=== PATIENT | male | born 1975 | race Caucasian/White ===

== ENCOUNTER 2018-05-14 17:51 | Emergency (ER) | payer OTHER ==
[2018-05-14 18:13] VITALS: TEMP 98.5; BMI 27.8
--- NOTE | 2018-05-14 18:13 | PDOC ---
Rapid Medical Evaluation Time Seen by Provider: 05/14/18 18:10 Medical Evaluation: Allergies Allergy/AdvReac Type Severity Reaction Status Date / Time No Known Allergies Allergy Verified 09/25/12 15:57 05/14/18 18:10 The patient has a chief complaint of pain to left abdomen x 2 weeks. States pain is present after eating. Denies nausea, vomiting, diarrhea, constipation and dysuria. Physical exam findings NAD unlabored breathing + bowel sounds, -abdominal tendernes no cva tenderness The following was ordered urinalysis, labs The patient will proceed to the ED Discharge Disposition - Diagnosis Abdominal pain - Referrals Referrals: Kt Funes MD [Primary Care Provider] - - Patient Instructions - Post Discharge Activity
[2018-05-14 18:33] LABS: BASO % 0.6 % (0-2.0); EOS % 2.3 % (0-4.5); HEMATOCRIT 47.6 % (35.4-49); LYMPH % 17.7 % (8-40); MCHC 33.6 g/dl (32.0-35.9); MEAN CELL VOLUME 92.4 fl (80-96); MEAN PLT VOLUME 8.5 fl (7.5-11.1); NEUT % 71.4 % (42.8-82.8); PLATELET COUNT 230 K/MM3 (134-434); RBC 5.15 M/mm3 (4.00-5.60); RDW 13.8 % (11.9-15.9); WHITE BLOOD COUNT 11.4 K/mm3 (4.0-10.0)
[2018-05-14 19:00] LABS: ALBUMIN 3.6 g/dl (3.4-5.0); ALK PHOS 69 U/L (45-117); ANION GAP 2 MMOL/L (8-16); BILIRUBIN,TOTAL 0.4 mg/dL (0.2-1); BLOOD UREA NITROGEN 19 mg/dL (7-18); CHLORIDE 110 mmol/L (98-107); CO2 30 mmol/L (21-32); CREATININE 0.9 mg/dL (0.55-1.3); GLUCOSE,RANDOM 95 mg/dL (74-106); POTASSIUM 4.7 mmol/L (3.5-5.1); SGOT/AST 18 U/L (15-37); SGPT/ALT 40 U/L (13-61); SODIUM 142 mmol/L (136-145); TOT PROT 7.6 g/dl (6.4-8.2)
[2018-05-14 19:04] LABS: URINE APPEARANCE CLEAR; URINE BILIRUBIN NEGATIVE (<2.0 mg/dL); URINE COLOR YELLOW; URINE GLUCOSE (UA) NEGATIVE (NEGATIVE); URINE KETONE NEGATIVE (NEGATIVE); URINE LEUK ESTERASE NEGATIVE (NEGATIVE); URINE NITRITE NEGATIVE (NEGATIVE); URINE PROTEIN NEGATIVE (NEGATIVE); URINE UROBILINOGEN NEGATIVE mg/dL (0.2-1.0)
--- NOTE | 2018-05-14 19:31 | PDOC ---
History of Present Illness - General Chief Complaint: Pain Stated Complaint: KIDNEYS PAIN Time Seen by Provider: 05/14/18 18:10 History Source: Patient - History of Present Illness Initial Comments: 05/14/18 20:45 43-year-old male complaining of left lower quadrant and left upper quadrant pain for the last 3 weeks on and off. Patient was seen by his primary care physician one month ago and was told his blood pressure is high and was given blood pressure medication. Patient reports that he did not start BP meds. Denies chest pain, dizziness, nausea, vomiting, diarrhea, fevers/chills, urinary symptoms. Denies flank pain. Past History - Past Medical History Allergies/Adverse Reactions: Allergies Allergy/AdvReac Type Severity Reaction Status Date / Time No Known Allergies Allergy Verified 05/14/18 18:58 Home Medications: Ambulatory Orders Mag Hydrox/Al Hydrox/Simeth [Mylanta Suspension -] 30 ml PO Q6H #1 bottle Ranitidine HCl [Zantac] 150 mg PO BID #30 tablet 05/14/18 COPD: No - Suicide/Smoking/Psychosocial Hx Smoking Status: Yes Smoking History: Current every day smoker Number of Cigarettes Smoked Daily: 10 Information on smoking cessation initiated: No Hx Alcohol Use: No Drug/Substance Use Hx: No Review of Systems - Review of Systems Able to Perform ROS?: Yes Is the patient limited Martiniquais proficient: No Constitutional: No: Symptoms Reported, See HPI, Chills, Diaphoresis, Fever, Loss of Appetite, Malaise, Night Sweats, Weakness, Weight Stable, Unintentional Wgt. Loss, Unexplained wgt Loss, Other HEENTM: No: Symptoms Reported, See HPI, Eye Pain, Blurred Vision, Tearing, Recent change in vision, Double Vision, Cataracts, Ear Pain, Ocular Prothesis, Ear Discharge, Nose Pain, Nose Congestion, Tinnitus, Nose Bleeding, Hearing Loss , Throat Pain, Throat Swelling, Mouth Pain, Dental Problems, Difficulty Swallowing, Mouth Swelling, Other Respiratory: No: Symptoms reported, See HPI, Cough, Orthopnea, Shortness of Breath, SOB with Exertion, SOB at Rest, Stridor, Wheezing, Productive cough, Hemoptysis, Other Cardiac (ROS): No: Symptoms Reported, See HPI, Chest Pain, Edema, Irregular Heart Rate, Lightheadedness, Palpitations, Syncope, Chest Tightness, Other ABD/GI: Yes: Abdominal cramping. No: Symptoms Reported, See HPI, Abdominal Distended, Abd. Pain w/ defecation, Blood Streaked Bowels, Constipated, Diarrhea , Difficulty Swallowing, Nausea, Poor Appetite, Poor Fluid Intake, Rectal Bleeding, Vomiting, Indigestion, Tarry Stools, Other : No: Symptoms Reported, See HPI, Burning, Dysuria, Discharge, Frequency, Flank Pain, Hematuria, Incontinence, Pain, Urgency, Testicular Mass, Testicular Swelling, Lesions, Testicular Pain, Other *Physical Exam - Vital Signs Last Vital Signs Temp Pulse Resp BP Pulse Ox 98.5 F 76 16 158/111 H 99 05/14/18 18:10 05/14/18 18:10 05/14/18 18:10 05/14/18 18:10 05/14/18 18:10 - Physical Exam General Appearance: Yes: Appropriately Dressed Respiratory/Chest: positive: Lungs Clear, Normal Breath Sounds Gastrointestinal/Abdominal: positive: Normal Bowel Sounds, Tender (LUQ pain) Musculoskeletal: positive: Normal Inspection. negative: CVA Tenderness Extremity: positive: Normal Capillary Refill, Normal Inspection, Normal Range of Motion Integumentary: positive: Normal Color, Dry, Warm Neurologic: positive: Fully Oriented, Alert, Normal Mood/Affect Moderate Sedation - Procedure Monitoring Vital Signs: Procedure Monitoring Vital Signs Temperature 98.5 F 05/14/18 18:10 Pulse Rate 76 05/14/18 18:10 Respiratory Rate 16 05/14/18 18:10 Blood Pressure 158/111 H 05/14/18 18:10 O2 Sat by Pulse Oximetry (%) 99 05/14/18 18:10 ED Treatment Course - LABORATORY CBC & Chemistry Diagram: 05/14/18 18:20 05/14/18 18:20 - ADDITIONAL ORDERS Additional order review: Laboratory Results 05/14/18 18:20 Sodium 142 Potassium 4.7 Chloride 110 H Carbon Dioxide 30 Anion Gap 2 L BUN 19 H Creatinine 0.9 Creat Clearance w eGFR > 60 Random Glucose 95 Calcium 9.0 Total Bilirubin 0.4 AST 18 ALT 40 Alkaline Phosphatase 69 Total Protein 7.6 Albumin 3.6 05/14/18 18:20 RBC 5.15 MCV 92.4 MCHC 33.6 RDW 13.8 MPV 8.5 Neutrophils % 71.4 Lymphocytes % 17.7 D Monocytes % 8.0 Eosinophils % 2.3 Basophils % 0.6 Progress Note - Progress Note Progress Note: A: abdominal pain; hypertension \ P: labs UA CTAP *DC/Admit/Observation/Transfer Diagnosis at time of Disposition: Abdominal pain Qualifiers: Abdominal location: lower abdomen, unspecified Qualified Code(s): R10.30 - Lower abdominal pain, unspecified Gastritis Qualifiers: Gastritis type: unspecified gastritis Chronicity: acute Gastritis bleeding: without bleeding Qualified Code(s): K29.00 - Acute gastritis without bleeding - Discharge Dispostion Disposition: HOME - Prescriptions Prescriptions: Mag Hydrox/Al Hydrox/Simeth [Mylanta Suspension -] 30 ml PO Q6H #1 bottle Ranitidine HCl [Zantac] 150 mg PO BID #30 tablet - Referrals Referrals: Kt Funes MD [Primary Care Provider] - Gabriele Phma DO [Staff Physician] - Call tomorrow - Patient Instructions Printed Discharge Instructions: Gastritis (Alternative Therapy) Additional Instructions: start bland diet reduce alcohol intake follow up with a gastroeneterologist as soon as possible. take zantac as prescribed Additional Instructions: * Please call your personal physician to report your Emergency Department visit and to report your progress, if any. * If there is no improvement in symptoms in 2 days call your physician. * Return to the Emergency Department for any worsening symptoms. - Post Discharge Activity Forms/Work/School Notes: Back to Work
[2018-05-14] MEDS ORDERED: RANITIDINE HCL 150 MG TABLET (FP) PO ONE (19:36)
[2018-05-14] MEDS ORDERED: MAG HYDROX/AL HYDROX/SIMETH 30 ML UNIT-DOSE CUP PO ONE (19:36)
[2018-05-14 19:37] LABS: EPI CELLS RARE /HPF (FEW); URINE HYALINE CAST 1 /lpf; URINE MUCUS FEW
[2018-05-14] MEDS ORDERED: amLODIPine BESYLATE 5 MG TABLET (FP) PO ONE (19:37)
[2018-05-14] MEDS ORDERED: RANITIDINE HCL 150 MG TABLET (FP) ONE (19:40)
[2018-05-14] MEDS ORDERED: MAG HYDROX/AL HYDROX/SIMETH 30 ML UNIT-DOSE CUP ONE (19:40)
[2018-05-14] MEDS ORDERED: amLODIPine BESYLATE 5 MG TABLET (FP) ONE (20:00)
[2018-05-14 20:10] VITALS: BP 141/97; PULSE 65
== END 2018-05-14 22:00 | disposition home or self-care (01) ==
LOC: JER 17:51
DX: K29.00 Acute gastritis without bleeding (principal); I10 Essential (primary) hypertension
CPT/HCPCS: 36415; 74177-TC; 80053; 81003; 81015; 85025; 87086; 99282-25